=== PATIENT | male | born 1990 | race Asian ===

== ENCOUNTER 2017-04-13 22:41 | Emergency (ER) | payer SELFPAY ==
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
[2017-04-14] MEDS ORDERED: Ibuprofen 800 MG Tab PO ONE (01:36)
--- NOTE | 2017-04-14 09:14 | CT ---
Head CT Technique: Multiple axial sections through the brain were obtained. Intravenous contrast was not utilized. Comparison: No previous intracranial imaging. Findings: Ventricles along with basal cisterns and sulci over the convexities are within normal limits for the patient's age. No abnormal parenchymal densities are seen. No evidence of intracranial hemorrhage. Soft tissue swelling is noted around the right periorbital region. Soft tissue density is identified within the right maxillary sinus which will be further described on facial CT study. Bone window settings show no acute calvarial abnormality. Impression: 1. Periorbital soft tissue swelling on the right side. 2. No acute intracranial abnormality is identified. Diagnostic code #3 I agree with preliminary report issued by [facility] ([facility] report finalized on 04/14/17, 2:00 AM Central Time)
--- NOTE | 2017-04-14 09:14 | CT ---
CT facial bones Technique: Multiple axial sections through the facial bones were obtained. Reconstructed coronal and sagittal images were reviewed. Comparison: No previous facial bone study. Findings: Inferior orbital blowout fracture is identified within the right orbit. Inferior fragment is displaced inferiorly by about 6.3 mm. There is mild herniation of intraorbital fat into the fracture defect. Inferior rectus muscle shows more inferior position but does not completely herniate through this defect. Air is noted within the inferior orbit secondary to the orbital fracture. Fluid and mucosal thickening is seen within the right maxillary sinus and within the ethmoid sinuses. Medial orbital wall appears intact. Soft tissue swelling is identified around the right orbit. Left orbit is within normal limits. No additional facial bone fracture is seen. Impression: 1. Inferior right orbital blowout fracture containing orbital fat. Slight inferior position of the inferior rectus muscle but no herniation through the defect is seen. Inferior fragment displaced inferiorly by 6.3 mm. 2. Soft tissue swelling. Fluid compatible with blood and mucosal thickening seen within the right maxillary sinus and within the ethmoid sinus. Diagnostic code #5 I agree with preliminary report issued by [facility] ([facility] report finalized on 04/14/17, 2:04 AM Central Time)
== END 2017-04-14 02:06 | disposition home or self-care (01) ==
LOC: JD.ED 22:41
DX: S02.31XA Fracture of orbital floor, right side, initial encounter for closed fracture (principal); S00.83XA Contusion of other part of head, initial encounter; F17.210 Nicotine dependence, cigarettes, uncomplicated; Y04.0XXA Assault by unarmed brawl or fight, initial encounter
CPT/HCPCS: 70450; 70486; 99285; A9270; 99284

== ENCOUNTER 2018-06-25 15:09 | Emergency (ER) | payer BC ==
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
[2018-06-25] MEDS ORDERED: cefTRIAXone 250 MG Vial IM ONE (15:44)
[2018-06-25] MEDS ORDERED: Azithromycin 250 MG Tab PO ONE (15:45)
[2018-06-25 17:25] LABS: C. TRACHOMATIS BY PCR NOT DETECTED; N. GONORRHOEAE BY PCR NOT DETECTED
== END 2018-06-25 16:25 | disposition home or self-care (01) ==
LOC: JD.ED 15:09
DX: A64 Unspecified sexually transmitted disease (principal)
CPT/HCPCS: 81001; 87491; 87591; 96372; 99284; A9270; J0696; 99283